=== PATIENT | male | born 1960 | race Caucasian/White ===

== ENCOUNTER → 2023-12-30 14:10 | Outpatient (CLI) | payer MEDICARE, OTHER, SELFPAY | PROVIDERS: Family Provider Family Medicine; PCP Family Medicine; Referring Provider Internal Medicine Cardiovascular Disease; Visit Provider Internal Medicine Cardiovascular Disease | DX: R06.02 Shortness of breath (principal); I48.0 Paroxysmal atrial fibrillation; F17.210 Nicotine dependence, cigarettes, uncomplicated; Z57.2 Occupational exposure to dust; Z77.110 Contact with and (suspected) exposure to air pollution; R94.2 Abnormal results of pulmonary function studies | CPT/HCPCS: 94060; 94726; 94729 ==

== ENCOUNTER → 2024-01-24 08:59 | Outpatient (CLI) | payer MEDICARE, OTHER, SELFPAY ==
--- NOTE | 2024-01-24 09:00 | DI.ECHO.S_ITS ---
[facility] : : [address] : : [place] : : [id number] : : Phone: [phone] Echocardiogram Report + + :Name: ENEIDA BOLANOS Study Date: 01/24/2024 Height: 70 in : :[facility] ReadingLocation: Weight: 180 lb : : Gender: Male BSA: 2.0 m2 : :: 1960 Age: 64 yrs BP: 143/78 mmHg: :Reason For Study: ATRIAL FIBRILLATION : :Ordering Physician: MIGEL, : :BHAVANA Performed By: Kodak Friedman : :Referring: BHAVANA LAINEZ : + + Interpretation Summary 1. The left ventricular contractility is mildly compromised. Estimate ejection fraction is approximately 45 to 50% with no segmental wall motion abnormalities. Borderline concentric LVH. Unable to comment on diastolic function. 2. The right ventricular contractility is normal. 3. Biatrial enlargement. Mild right ventricular enlargement noted. The left ventricular cavity is of normal size. 4. No significant valvular abnormalities. 5. No obvious intracardiac shunts. 6. No obvious ventricular masses nor thrombi. 7. No hemodynamically significant pericardial effusion. 8. Low right-sided filling pressures. Conclusion: Mildly compromised left ventricular systolic function with no significant valvular abnormalities. Procedure: A two-dimensional transthoracic echocardiogram with color flow and Doppler was performed. The study quality was technically good. Comparison is made with the echocardiogram of 02/28/2020. The patient was in normal sinus rhythm during the exam. Left Ventricle: The left ventricle is normal in size. Left ventricular wall thickness is mildly increased. There is no ventricular septal defect visualized. The ejection fraction is estimated to be 45-50%. There is mild global hypokinesis of the left ventricle. Right Ventricle: Borderline right ventricular enlargement. The right ventricular systolic function is normal. Atria: The left atrium is moderately dilated. The right atrium is mildly dilated. There is no Doppler evidence for an atrial septal defect. Mitral Valve: The mitral valve is normal in structure and function. There is trace mitral regurgitation. Aortic Valve: The aortic valve is trileaflet. The aortic valve opens well. No aortic regurgitation is present. Tricuspid Valve: The tricuspid valve is normal in structure and function. There is trace tricuspid regurgitation. The right ventricular systolic pressure is estimated to be at least 29 mmHg based on an estimated right atrial pressure of 3 mm Hg. Pulmonic Valve: The pulmonic valve is normal in structure and function. There is no pulmonic valvular regurgitation. Great Vessels: The aortic root is normal size. The ascending aorta could not be visualized. The pulmonary artery is normal size. The IVC is of normal diameter and collapses greater than 50% with a sniff. This suggests a low right atrial pressure of 3 mm Hg. Pericardium/ Pleura There is no pericardial effusion. There is no pleural effusion. MMode/2D Measurements & Calculations LVIDd: 5.4 cm LVOT diam: 2.3 cm LVIDs: 4.4 cm Ao root diam: 3.4 cm FS: 18.7 % Ao Arch Diam (Prox Trans): 2.1 cm EPSS: 1.2 cm IVSd: 1.1 cm LVPWd: 0.85 cm LV garcia. diameter/BSA (cm/m^2): 2.7 LV sys. diameter/BSA (cm/m^2): 2.2 LA A2 area: 24.1 cm2 RA long axis: 6.1 cm LA A4 area: 23.2 cm2 RA area: 25.7 cm2 LA length (vol): 5.4 cm RA vol: 91.8 ml LA vol: 88.0 ml RA : 46.0 ml/m2 LA vol index: 44.1 ml/m2 IVC diam: 1.6 cm RVD1 (basal): 4.0 cm RVD2 (mid): 3.6 cm TAPSE: 2.9 cm Doppler Measurements & Calculations Ao V2 max: 147.5 cm/sec LVOT Max Trey: 125.4 cm/sec Ao V2 mean: 101.4 cm/sec LV V1 max P.3 mmHg Ao max P.7 mmHg LV V1 VTI: 26.6 cm Ao mean P.7 mmHg ZAK(I,D): 3.5 cm2 Ao V2 VTI: 32.8 cm ZAK(V,D): 3.6 cm2 sev ratio: 0.81 ZAK indexed to BSA (cm^2/m^2): 1.7 MV E max rtey: 52.4 cm/sec TR max trey: 256.7 cm/sec MV A max trey: 51.0 cm/sec TR max P.4 mmHg MV E/A: 1.0 PA V2 max: 118.9 cm/sec Med Peak E' Trey: 5.1 cm/sec PA V2 mean: 87.3 cm/sec E/E' med: 10.3 PA mean P.3 mmHg Lat Peak E' Trey: 7.6 cm/sec PA pr(Accel): 48.2 mmHg E/E' lat: 6.9 E/e' average: 8.6 MV dec time: 0.30 sec SV(LVOT): 113.3 ml Reading Physician:
--- NOTE | 2024-01-24 20:58 | DI.NM.S_ITS ---
DATE OF SERVICE: 01/24/2024 NUCLEAR CARDIOLOGY MYOCARDIAL PERFUSION STUDY PROCEDURE PERFORMED: Pharmacologic vasodilator stress and rest myocardial perfusion imaging with gating to assess ejection fraction and regional wall motion. ORDERING PROVIDER: Dr. Brice Ruvalcaba. INDICATIONS: The patient is a 64-year-old male with paroxysmal atrial fibrillation on amiodarone who reports dyspnea and chest tightness. PHARMACOLOGIC VASODILATOR STRESS: Per protocol, 0.4 mg of regadenoson was infused with a modest hemodynamic response. He had no chest discomfort or other anginal symptoms. His resting ECG shows sinus rhythm with a RBBB and LAFB but relatively normal ST segments. There are no significant ST-segment shifts with stress. There were no arrhythmias. Per protocol, 24.8 millicuries of technetium-99m Myoview was injected and he was imaged 15 minutes later using a gated SPECT acquisition protocol. Earlier in the day while at rest, he had been injected with 8.1 millicuries of technetium-99m Myoview and was imaged 15 minutes later, again using a gated SPECT acquisition protocol. FINDINGS: 1. Raw data. There is fair myocardial tracer uptake but with increased uptake of the right ventricular free wall. The patient was unable to lie prone to assess for any attenuation artifact. His lung/heart ratio is normal at 0.36 with a normal TID ratio of 1.12. 2. Quantitated gated SPECT: Post-stress ejection fraction is estimated at 59%, although visually appears likely closer to 50%, with borderline global hypokinesis and likely mildly worse hypokinesis in the distal inferior wall. Again, significant right ventricular tracer uptake is noted. The resting images appear unchanged but with the ejection fraction calculated at 49%, and with a fairly marked increased resting end-diastolic volume of 200 mL. 3. Myocardial perfusion imaging: Post-stress supine images show a fairly normal perfusion pattern proximally, but a moderate perfusion defect in the distal one-third of the inferior wall, extending out to the apex. While this could represent diaphragmatic attenuation artifact, there are no prone images available to assess for this. The resting images show a similar perfusion pattern without any clear areas of improvement. IMPRESSION: 1. Probable abnormal myocardial perfusion study but with slightly reduced specificity because of the lack of prone images. 2. [id number] sized, fixed perfusion defect in the distal one- third of the inferior wall, likely representing previous nontransmural infarction although diaphragmatic attenuation artifact cannot be entirely excluded. Yet, with the suggestion of a wall motion abnormality in this area, this would support a true perfusion defect with previous infarction. However, there is no evidence for any myocardial ischemia. 3. Low normal left ventricular systolic function with borderline global hypokinesis, likely worse in the distal inferior wall, and significantly increased tracer uptake of the right ventricular free wall, suggesting a possible right ventricular overload condition. Left ventricular volumes are significantly increased. 4. No angina or ECG evidence of ischemia with pharmacologic vasodilator stress. 5. Compared to the previous myocardial perfusion study from 11/27/2015, the inferior defect appears unchanged. Prone images on that study suggested significant improvement in the defect, supporting possible diaphragmatic attenuation, but a slight defect remained present. The previous ejection fraction was estimated at 69% with a resting end-diastolic volume of 147 mL suggesting, slightly reduced systolic function and larger left ventricular volumes compared to the previous study. Isidro Betancourt - JAMES/heron/TANI doc#: [id number]/job#: [id number] dd: 01/24/2024 16:46:00 dt: 01/24/2024 20:26:00 DICTATING MD/COPIES TO: Isidro Greer MD; Brice Ruvalcaba MD COPIES MNE: SUNSHINE;
== END ==
PROVIDERS: Family Provider Family Medicine; PCP Family Medicine; Referring Provider Internal Medicine Cardiovascular Disease; Visit Provider Internal Medicine Cardiovascular Disease
DX: I48.0 Paroxysmal atrial fibrillation (principal); R06.02 Shortness of breath
CPT/HCPCS: 78452; 93017; 93306; A9502; J2785

== ENCOUNTER → 2024-03-15 11:33 | Outpatient (CLI) | payer MEDICARE, OTHER, SELFPAY ==
[2024-03-15 12:36] LABS: Add Manual Diff / Slide Review NO; Basophils Absolute Auto 100 /uL (0-100); Basophils Percent Auto 0.7 % (0-2); Eosinophils Absolute Auto 0 /uL (0-450); Eosinophils Percent Auto 0.3 % (2-4); Hematocrit 44.3 % (41-53); Hemoglobin 15.3 g/dL (13.5-17.5); Lymphocytes Absolute Auto 1800 /uL (1100-4500); Lymphocytes Percent Auto 17.7 % (25-40); Mean Corpuscular HGB Conc 34.5 % (30-36); Mean Corpuscular Hemoglobin 30.9 PG (26-34); Mean Corpuscular Volume 89.5 fL (80-100); Monocytes Absolute Auto 800 /uL (0-900); Monocytes Percent Auto 7.9 % (3-14); Neutrophils Absolute Auto 7300 /uL (1500-7000); Neutrophils Percent Auto 73.4 % (50-75); Platelet Count 373 X10^3/uL (150-400); Red Blood Cell Count 4.95 X10^6/uL (4.5-5.9); Red Cell Distribution Width 14.8 % (11.6-14.8); White Blood Cell Count 9.9 X10^3/uL (4.5-11.0)
[2024-03-17 20:36] LABS: Aspergillus fumigatus IgE <0.10 kU/L (Class 0)
[2024-03-18 22:11] LABS: Immunoglobulin E <2 IU/mL (6-495)
== END ==
PROVIDERS: Family Provider Family Medicine; PCP Family Medicine; Referring Provider Internal Medicine; Visit Provider Internal Medicine
DX: J44.9 Chronic obstructive pulmonary disease, unspecified (principal); Z12.2 Encounter for screening for malignant neoplasm of respiratory organs; F17.210 Nicotine dependence, cigarettes, uncomplicated; R06.02 Shortness of breath
CPT/HCPCS: 36415; 82785; 85025; 86003; 95012; 99215; A4617

== ENCOUNTER → 2024-03-16 09:28 | Outpatient (CLI) | payer MEDICARE, OTHER, SELFPAY ==
--- NOTE | 2024-03-16 09:29 | DI.CT.S_ITS ---
PROCEDURE: CT CHEST HIGH RESOLUTION INDICATIONS: assess for bronchiectasis vs ILD TECHNIQUE: Noncontrast 1.0 and 5.0 mm thick contiguous axial sections from the pulmonary apex to the posterior costophrenic angles, with 7 mm thick coronal and sagittal MIP reformats. 1 mm thick dynamic expiratory images acquired through the upper, mid, and lower lungs. 1.0 mm thick axial sections acquired from the tab to the posterior costophrenic angles in the prone end-inspiration position. For radiation dose reduction, the following was used: automated exposure control, adjustment of mA and/or kV according to patient size. COMPARISON: None. FINDINGS: Image quality: Diagnostic Lungs and pleura: There are mild areas of basal scarring. No significant changes with prone imaging. No bronchiectasis identified, however there is diffuse bronchial wall thickening. No honeycombing or peripheral reticulation. No pleural effusions or dense airspace disease. Moderate diffuse air trapping is seen on expiratory views. Mediastinum, heart, and esophagus: Normal heart size. No pathologic lymph nodes by size criteria. Esophagus appears unremarkable Chest wall and thyroid: Unremarkable Upper abdomen: No gross abnormality on these noncontrast limited images Bones: Degenerative osseous findings. IMPRESSION: No significant parenchymal fibrosis. There is minimal basal scarring. No evidence of honeycombing or ground-glass opacities. Diffuse mild bronchial wall thickening with moderate parenchymal air trapping, suggestive of acute on chronic bronchiolitis. No overt bronchiectasis. Dictated by: Dominic Cano M.D. on 03/16/2024 at 15:47 Approved by: Dominic Cano M.D. on 03/16/2024 at 15:51
== END ==
PROVIDERS: Family Provider Family Medicine; PCP Family Medicine; Referring Provider Internal Medicine; Visit Provider Internal Medicine
DX: Z12.2 Encounter for screening for malignant neoplasm of respiratory organs (principal); F17.210 Nicotine dependence, cigarettes, uncomplicated; R06.02 Shortness of breath; J44.9 Chronic obstructive pulmonary disease, unspecified
CPT/HCPCS: 71250